=== PATIENT | male | born 1980 | race Two or more races ===

== ENCOUNTER 2024-02-16 19:05 | Emergency (ER) | payer SELFPAY ==
[~2024-02-16] VITALS: Ht 165.1 cm; Wt 90.9 kg
[2024-02-16 19:19] VITALS: TEMP 98.3
[2024-02-16] MEDS ORDERED: CEPH-558 PO (20:58)
[2024-02-16] MEDS: PERTUSS(ACELL),DIPH,TET/PF 0.5 ML SYRINGE [ADULT] IM. ONE (20:58)
[2024-02-16 21:20] VITALS: BP 141/85; PULSE 76; RESP 18; O2SAT 99
== END 2024-02-16 21:44 | disposition home or self-care (01) ==
LOC: EMS 19:05
DX: S62.635A Displaced fracture of distal phalanx of left ring finger, initial encounter for closed fracture (principal); F12.90 Cannabis use, unspecified, uncomplicated; Z23 Encounter for immunization; X58.XXXA Exposure to other specified factors, initial encounter; Y93.89 Activity, other specified; Y92.89 Other specified places as the place of occurrence of the external cause; Y99.8 Other external cause status
CPT/HCPCS: 90471; 90715; 99283